=== PATIENT | male | born 1995 | race American Indian/Alaskan Native ===

== ENCOUNTER 2019-01-22 02:06 | Emergency (ER) | payer SELFPAY ==
[2019-01-22 03:13] LABS: Basophils # (Auto) 0.1 K/mm3 (0.0-0.1); Basophils % (Auto) 0.6 % (0.0-1.8); Eosinophils # (Auto) 0.1 K/mm3 (0.0-0.4); Eosinophils % (Auto) 0.3 % (0.0-4.3); Hematocrit 48.4 % (35.5-45.6); Hemoglobin 15.9 gm/dl (11.8-15.2); Lymphocytes # (Auto) 1.4 K/mm3 (1.2-5.4); Lymphocytes % (Auto) 8.7 % (13.4-35.0); Mean Corpuscular HGB Conc 33 % (32-34); Mean Corpuscular Volume 90 fl (84-94); Monocytes # (Auto) 1.4 K/mm3 (0.0-0.8); Monocytes % (Auto) 8.6 % (0.0-7.3); Platelet Count 331 K/mm3 (140-440); Red Blood Count 5.36 M/mm3 (3.65-5.03); Red Cell Distribution Width 14.3 % (13.2-15.2)
[2019-01-22 03:31] LABS: Alanine Aminotransferase 9 units/L (7-56); Albumin 4.7 g/dL (3.9-5); BUN/Creatinine Ratio 11; Blood Urea Nitrogen 11 mg/dL (9-20); Calcium 9.9 mg/dL (8.4-10.2); Hemolysis Index 7
[2019-01-22] MEDS ORDERED: MORPHINE IV ONE (04:26)
[2019-01-22] MEDS ORDERED: PEPCID IV ONE (04:26)
[2019-01-22] MEDS ORDERED: NACL 0.9% 1000 ML 1,000 ML IV ONE (04:26)
[2019-01-22] MEDS ORDERED: ZOFRAN IV ONE (04:26)
--- NOTE | 2019-01-22 06:30 | Emergency Department Report ---
ED N/V/D HPI - General Chief complaint: Abdominal Pain Stated complaint: NAUSEA, VOMITING,DIARRHEA Source: patient Mode of arrival: Ambulatory Limitations: No Limitations - History of Present Illness Initial comments: Patient is a 23-year-old -[place] male with no past medical history presents to the ED who comes in with acute onset persistent intermittent nausea and vomiting and diarrhea with diffuse abdominal pain for the last 8 hours. Patient states that the last meal he ate was at pizza from a restaurant before history of having these symptoms. Patient denies fever, chills, dizziness, chest pain, shortness of breath, sore throat, dysuria, urinary frequency and urgency, syncope, headache, cough or sinus congestion MD complaint: nausea, vomiting, diarrhea, abdominal pain -: Sudden, hour(s) (8) Description of Vomiting: food contents, watery, bilious Description of Diarrhea: water Associated Abdominal Pain: Yes Location: diffuse Radiation: none Severity: severe Pain Scale: 7 Quality: cramping, aching, sharp Consistency: intermittent Improves with: none Worsens with: eating Context: possible food poisoning Associated Symptoms: denies other symptoms, loss of appetite, nausea/vomiting. denies: myalgias, chest pain, cough, diaphoresis, fever/chills, headaches, malaise, rash, dysuria, shortness of breath, syncope, weakness, other - Related Data Previous Rx's Medication Instructions Recorded Last Taken Type Dicyclomine [Bentyl] 20 mg PO Q6H PRN #24 tablet 01/22/19 Unknown Rx Diphenoxylate/Atropine [Lomotil] 1 - 2 tab PO Q4H PRN #15 tablet 01/22/19 Unknown Rx Ondansetron [Zofran Odt] 4 mg PO Q6HR PRN #21 tab.rapdis 01/22/19 Unknown Rx raNITIdine HCl [Zantac] 150 mg PO Q12H #30 tablet 01/22/19 Unknown Rx Allergies Allergy/AdvReac Type Severity Reaction Status Date / Time No Known Allergies Allergy Unverified 01/22/19 02:19 ED Review of Systems ROS: Stated complaint: NAUSEA, VOMITING,DIARRHEA Other details as noted in HPI Constitutional: denies: chills, fever Eyes: denies: eye pain, eye discharge, vision change ENT: denies: ear pain, throat pain, dental pain, hearing loss Respiratory: denies: cough, orthopnea, shortness of breath, SOB with exertion, SOB at rest, wheezing Cardiovascular: denies: chest pain, palpitations, dyspnea on exertion, syncope, paroxysmal nocturnal dyspnea Endocrine: no symptoms reported Gastrointestinal: abdominal pain, nausea, vomiting, diarrhea Genitourinary: denies: urgency, dysuria Musculoskeletal: denies: back pain, joint swelling, arthralgia Skin: denies: rash, lesions Neurological: denies: headache, weakness, paresthesias Psychiatric: denies: anxiety, depression Hematological/Lymphatic: denies: easy bleeding, easy bruising ED Past Medical Hx - Past Medical History Previous Medical History?: Yes Hx Asthma: Yes - Surgical History Past Surgical History?: No - Social History Smoking Status: Never Smoker Substance Use Type: Alcohol, Marijuana - Medications Home Medications: Home Medications Medication Instructions Recorded Confirmed Last Taken Type Dicyclomine [Bentyl] 20 mg PO Q6H PRN #24 tablet 01/22/19 Unknown Rx Diphenoxylate/Atropine [Lomotil] 1 - 2 tab PO Q4H PRN #15 tablet 01/22/19 Unknown Rx Ondansetron [Zofran Odt] 4 mg PO Q6HR PRN #21 tab.rapdis 01/22/19 Unknown Rx raNITIdine HCl [Zantac] 150 mg PO Q12H #30 tablet 01/22/19 Unknown Rx ED Physical Exam - General Limitations: No Limitations General appearance: alert, in no apparent distress - Head Head exam: Present: atraumatic, normocephalic, normal inspection - Eye Eye exam: Present: normal appearance, PERRL, EOMI. Absent: scleral icterus, conjunctival injection, nystagmus, periorbital swelling, periorbital tenderness Pupils: Present: normal accommodation - ENT ENT exam: Present: normal exam, normal orophraynx, mucous membranes moist, TM's normal bilaterally, normal external ear exam - Neck Neck exam: Present: normal inspection, full ROM. Absent: tenderness, meningismus, lymphadenopathy - Respiratory Respiratory exam: Present: normal lung sounds bilaterally. Absent: respiratory distress, wheezes, rales, rhonchi, chest wall tenderness, accessory muscle use, decreased breath sounds - Cardiovascular Cardiovascular Exam: Present: regular rate, normal rhythm, normal heart sounds. Absent: systolic murmur, diastolic murmur, rubs, gallop - GI/Abdominal GI/Abdominal exam: Present: soft, normal bowel sounds. Absent: distended, tenderness, guarding, rebound, hyperactive bowel sounds, hypoactive bowel sounds, organomegaly, mass, bruit, pulsatile mass - Rectal Rectal exam: Present: deferred - Extremities Exam Extremities exam: Present: normal inspection, full ROM, normal capillary refill - Back Exam Back exam: Present: normal inspection, full ROM. Absent: tenderness, CVA tenderness (R), CVA tenderness (L), muscle spasm, paraspinal tenderness, vertebral tenderness - Neurological Exam Neurological exam: Present: alert, oriented X3, CN II-XII intact, normal gait, reflexes normal - Psychiatric Psychiatric exam: Present: normal affect, normal mood - Skin Skin exam: Present: warm, dry, intact, normal color. Absent: rash ED Course Vital Signs 01/22/19 01/22/19 02:12 05:10 Temperature 98.6 F Pulse Rate 80 Respiratory 18 16 Rate Blood Pressure 124/76 O2 Sat by Pulse 95 Oximetry - Reevaluation(s) Reevaluation #1: 01/22/19 06:34 This is a 23-year-old male who presented nausea, vomiting, diarrhea and diffuse abdominal pain for 8 hours intermittently. In the ED, patient is alert and oriented 3 and is not in distress but appears generally fatigued. Patient was treated in the ED with antiemetics, also given pain medication and normal saline 1 L IV bolus. Lab test results were reviewed and show acute hypokalemia of 3.3 mmol per liter and acute leukocytosis of 16,000 and hyperglycemia of 1 29 mg/dL. The rest of the test results are nonactionable. On reevaluation, the patient's nausea and vomiting as a result of medications and patient was ordered fluid challenge in the ED. Patient was discharged home and advised to maintain a clear liquid diet for 12-24 hours and to follow-up with his primary care physician in 3-5 days for reevaluation or return to the ED immediately if symptoms get worse. 01/22/19 06:36 ED Medical Decision Making - Lab Data Result diagrams: 01/22/19 02:27 01/22/19 02:27 - Medical Decision Making This is a 23-year-old male who presented nausea, vomiting, diarrhea and diffuse abdominal pain for 8 hours intermittently. In the ED, patient is alert and oriented 3 and is not in distress but appears generally fatigued. Patient was treated in the ED with antiemetics, also given pain medication and normal saline 1 L IV bolus. Lab test results were reviewed and show acute hypokalemia of 3.3 mmol per liter and acute leukocytosis of 16,000 and hyperglycemia of 1 29 mg/dL. The rest of the test results are nonactionable. On reevaluation, the patient's nausea and vomiting as a result of medications and patient was ordered fluid challenge in the ED. Patient was discharged home and advised to maintain a clear liquid diet for 12-24 hours and to follow-up with his primary care physician in 3-5 days for reevaluation or return to the ED immediately if symptoms get worse - Differential Diagnosis viral gastroenteritis; dehydration; vomiting and diarrhea; GERD Critical care attestation.: If time is entered above; I have spent that time in minutes in the direct care of this critically ill patient, excluding procedure time. ED Disposition Clinical Impression: Nausea, vomiting and diarrhea, Viral gastroenteritis Abdominal pain Qualifiers: Abdominal location: generalized Qualified Code(s): R10.84 - Generalized abdominal pain Disposition: TO HOME OR SELFCARE Is pt being admited?: No Does the pt Need Aspirin: No Condition: Stable Instructions: Abdominal Pain (ED), Acute Nausea and Vomiting (ED), Acute Diarrhea (ED), Gastroenteritis (ED) Additional Instructions: Maintain a clear liquid diet for 12-24 hours, take medications with food and drink plenty of fluids and follow-up with your primary care physician in 3-5 days for reevaluation. Return to the ED immediately if symptoms get worse. Prescriptions: Dicyclomine [Bentyl] 20 mg PO Q6H PRN #24 tablet PRN Reason: Pain , Severe (7-10) Diphenoxylate/Atropine [Lomotil] 1 - 2 tab PO Q4H PRN #15 tablet PRN Reason: Diarrhea raNITIdine HCl [Zantac] 150 mg PO Q12H #30 tablet Ondansetron [Zofran Odt] 4 mg PO Q6HR PRN #21 tab.rapdis PRN Reason: Nausea Referrals: PRIMARY CARE, [Primary Care Provider] - 3-5 Days [facility] [Outside] - 3-5 Days Time of Disposition: 06:27 Print Language: TAJIK
[2019-01-22 07:00] VITALS: BP 130/74
== END 2019-01-22 06:50 | disposition home or self-care (01) ==
LOC: ED 02:06
DX: A08.4 Viral intestinal infection, unspecified (principal); J45.909 Unspecified asthma, uncomplicated; F17.200 Nicotine dependence, unspecified, uncomplicated
CPT/HCPCS: 36415; 80053; 83690; 85025; 96361; 96374; 96375; 99283; J2270; J2405; J7030